=== PATIENT | male | born 1950 | race Asian ===

== ENCOUNTER 2018-07-30 10:26 | Emergency (ER) | payer OTHER ==
[~2018-07-30] VITALS: Ht 172.7 cm; Wt 79.4 kg
[2018-07-30 10:28] VITALS: BP 149/81
--- NOTE | 2018-07-30 10:28 | NUR ---
BRODIE GONZALEZ ALS TO ER BED 06
--- NOTE | 2018-07-30 10:40 | NUR ---
C/O [facility] 7/10 CP THAT STARTED 1 HOUR AGO TODAY, DENIED N/V/D/FEVER/COUGH. PT DENIES MEDICAL HISTORY. PT IN SINUS DAVID AT 54 BPM, ERMD AWARE SKIN IS PINK/WARM/DRY; AAOX4 WITH EVEN AND STEADY GAIT; LUNGS CLEAR BL; HR EVEN AND DAVID, ERMD AWARE; PATIENT POSITIONED FOR COMFORT; HOB ELEVATED; BEDRAILS UP X2; BED DOWN. ER MD MADE AWARE OF PT STATUS.
[2018-07-30] MEDS ORDERED: ONDANSETRON 4 MG/2 ML VIAL IVP ONE ×2 (10:45→11:45)
[2018-07-30] MEDS ORDERED: MORPHINE SULFATE 4 MG/ML SYR IVP ONE ×2 (10:45→11:45)
--- NOTE | 2018-07-30 10:45 | NUR ---
ERMD AT BEDSIDE
[2018-07-30 10:46] LABS: BASOPHILS # (AUTO) 0.1 K/uL (0.00-0.22); BASOPHILS % (AUTO) 0.7 % (0.0-2.0); EOSINOPHILS # (AUTO) 0.3 K/uL (0-0.4); EOSINOPHILS % (AUTO) 3.4 % (0.0-4.0); HEMOGLOBIN 14.9 g/dL (12.0-18.0); LYMPHOCYTES # (AUTO) 4.4 K/uL (2.0-11.5); LYMPHOCYTES % (AUTO) 46.4 % (20.5-51.1); MEAN CORPUSCULAR HEMOGLOBIN 32 pg (27-31); MEAN CORPUSCULAR HGB CONC 34 g/dL (33-37); MEAN CORPUSCULAR VOLUME 95.4 fL (80-94); MONOCYTES # (AUTO) 0.6 K/uL (0.8-1.0); MONOCYTES % (AUTO) 6.4 % (1.7-9.3); NEUTROPHILS # (AUTO) 4.1 K/uL (1.8-7.7); NEUTROPHILS % (AUTO) 43.1 % (42.2-75.2); PLATELET COUNT (AUTO) 201 K/uL (140-450); RED BLOOD CELL COUNT(AUTO) 4.61 MIL/uL (4.20-6.10); WHITE BLOOD COUNT (AUTO) 9.5 K/uL (4.8-10.8)
[2018-07-30 11:00] LABS: PROTHROMBIN TIME 9.4 secs (10.8-13.4)
[2018-07-30 11:05] LABS: ALBUMIN 3.5 g/dL (3.4-5.0); ANION GAP 14.6 (8-16); CARBON DIOXIDE 26.6 mmol/L (21-32); POTASSIUM 3.2 mmol/L (3.5-5.1); TOTAL BILIRUBIN 0.5 mg/dL (0.0-1.0)
--- NOTE | 2018-07-30 11:27 | NUR ---
pt taken to ct accompanied by lyric tavarez
--- NOTE | 2018-07-30 11:35 | NUR ---
INFORMED DR. STEARNS OF EKG CHANGE & PT STILL IN PAIN. STAT EKG DONE BY EMT.
[2018-07-30] MEDS ORDERED: NITROGLYCERIN 0.4 MG TAB SL ONE (11:45)
--- NOTE | 2018-07-30 12:20 | NUR ---
Patient to be transferred to [facility]. Is being transferred due to NEED FOR HIGHER LEVEL OF CARE. Receiving facility has accepting physician and available space. ER physician has signed transfer form. Patient or responsible libertarian has agreed to transfer and signed form. Patient belongings inventoried and will be sent with patient. Copy of nursing notes, lab reports, EKG, Physicians Orders and X-rays to be sent with patient. Report called to RAYMON at receiving facility. [facility] ambulance service has been called for transfer. ETA is 10 MINUTES.
[2018-07-30 12:30] VITALS: BP 132/85
[2018-07-30 13:23] LABS: APPEARANCE,URINE CLEAR (CLEAR); BILIRUBIN,URINE NEGATIVE (NEGATIVE); BLOOD, URINE NEGATIVE (NEGATIVE); COLOR,URINE DARK YELLOW (YELLOW); LEUKOCYTE ESTERASE ,URINE NEGATIVE (NEGATIVE); NITRITE, URINE NEGATIVE (NEGATIVE); UGLUCOSE NEGATIVE (NEGATIVE)
== END 2018-07-30 12:20 | disposition short-term general hospital (02) ==
LOC: MED 10:26
DX: I21.3 ST elevation (STEMI) myocardial infarction of unspecified site (principal); I10 Essential (primary) hypertension
CPT/HCPCS: 36415; 71045; 71260; 74177; 80053; 81003; 84484; 85025; 85610; 93005; 96374; 96375; 96376; 99291; J1644; J2270; J2405; Q0092; Q9967